=== PATIENT | male | born 2000 | race Caucasian/White ===

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

== ENCOUNTER → 2023-02-19 09:06 | Outpatient (CLI) | payer BC, SELFPAY ==
--- NOTE | 2023-02-19 09:06 | US_ITS ---
FINAL REPORT CLINICAL HISTORY: EPISODES OF CHEST PAIN COMPARISON: None FINDINGS: The gallbladder shows no wall thickening, distention or stone disease. There is an echogenic fixed focus along the posterior wall of the proximal gallbladder, which measures 5 mm in size, consistent with a small polyp. The common bile duct measures 2.1 mm and is unremarkable. No biliary ductal dilatation is appreciated. No fluid collections are seen. Limited portions of the right liver are unremarkable. Limited portions of the right kidney are unremarkable. IMPRESSION: 1. No evidence of cholelithiasis, however there is a fixed focus along the posterior wall of the proximal gallbladder, 5 mm in size, consistent with a small polyp. 2. No evidence of biliary obstruction Reviewed, Interpreted and Dictated by Karl Garcias MD Transcribed by Jayla Snyder Authenticated and [facility]
== END ==
PROVIDERS: PCP Nurse Practitioner Family; Visit Provider Family Medicine
DX: R10.811 Right upper quadrant abdominal tenderness (principal); R07.9 Chest pain, unspecified
CPT/HCPCS: 76705

== ENCOUNTER 2024-01-08 17:12 | Outpatient (CLI) | payer BC, SELFPAY ==
--- NOTE | 2024-01-08 17:22 | XR_ITS ---
PROCEDURE INFORMATION: Exam: XR Right Finger(s) Exam date and time: 01/08/2024 5:12 PM Age: 23 years old Clinical indication: Swelling; Fingers; Right; Additional info: R/O osteomyelitis distal index finger, cut distal index finger TECHNIQUE: Imaging protocol: Radiologic exam of the right fingers. Views: Minimum 2 views. COMPARISON: CR XR HAND RT MIN 3V 02/18/2019 9:03 PM FINDINGS: Bones/joints: No evidence for bone destruction to indicate osteomyelitis. Soft tissues: No evidence for periostitis to indicate osteomyelitis. IMPRESSION: 1. No evidence for bone destruction to indicate osteomyelitis. 2. No evidence for periostitis to indicate osteomyelitis. 3. If osteomyelitis is suspected MRI may be helpful.
== END 2024-01-08 23:59 | disposition home or self-care (01) ==
LOC: RAD 17:15
PROVIDERS: PCP Family Medicine; Visit Provider Family Medicine
DX: M79.89 Other specified soft tissue disorders (principal); L08.9 Local infection of the skin and subcutaneous tissue, unspecified
CPT/HCPCS: 73140

== ENCOUNTER 2024-09-04 13:00 | Outpatient (CLI) | payer BC, SELFPAY ==
--- OUTSIDE RECORDS SUMMARY | 2024-09-04 22:31 | XMS_ITS | Clinical Summary ---
Author Organization Healthcare Address [address] [place] [address] Care Team Providers Care Floral Decorator Name Role Phone Celine Mckeon Primary Care Provider Family History Medical History Relation Name Comments Hypercholesterolemia Father Psoriasis Father Relation Name Status Comments Father Social History Tobacco Use Types Packs/Day Years Used Date Smoking Tobacco: Passive Smo ke Exposure - Never Smoker Sex and Gender Information Value Date Recorded Sex Assigned at Not on file Legal Sex Male 8:54 PM EDT Gender Identity Not on file Sexual Orientation Not on file Last Filed Vital Signs Vital Sign Reading Time Taken Comments Blood Pressure - - Pulse - - Temperature - - Respiratory Rate - - Oxygen Saturation - - Inhaled Oxygen Concentration - - Weight 58.9 kg (129 lb 13.6 oz) 05/19/2015 8:54 AM EST Height 157.5 cm (5' 2.01 ) 05/19/2015 8:54 AM ES T Body Mass Index 23.74 05/19/2015 8:54 AM EST Plan of Treatment Not on file Care Teams Floral Decorator Relationship Specialty Start Date End Date Celine Mckeon PA [address] [place] [address] PCP - General 08/05/20
== END 2024-09-04 23:59 | disposition home or self-care (01) ==
LOC: LAB.DROPOF 22:28
PROVIDERS: PCP Nurse Practitioner Family; Visit Provider Nurse Practitioner Family
DX: J02.9 Acute pharyngitis, unspecified (principal)
CPT/HCPCS: 87070; 87077

== ENCOUNTER → 2025-01-25 20:39 | Outpatient (CLI) | payer BC, SELFPAY ==
--- OUTSIDE RECORDS SUMMARY | 2025-01-25 20:42 | XMS_ITS | Clinical Summary ---
Author Organization Healthcare Address [address] [place] [address] Care Team Providers Care Catering And Events Manager Name Role Phone Celine Mckeon Primary Care [...] of Treatment Not on file Care Teams Catering And Events Manager Relationship Specialty Start Date End Date Celine Mckeon PA [address] [place] [address] PCP - General 08/05/20
--- OUTSIDE RECORDS SUMMARY | 2025-01-25 20:42 | XMS_ITS | Data Portability ---
Author Organization [facility] ADMIN Address [address] [place] [phone] Assessment No assessment recorded. Plan of Treatment Reminders Order Date Submit Date Provider Last Modified By Organization Details Last Modified Time Details Appointments None record ed. Lab None record ed. Referral None record ed. Procedures None record ed. Surgeries None record ed. Imaging None record ed. Medication Orders None record ed. Patient TargetsNo targets recorded. Patient InstructionsNo instructions recorded. Reason for Referral None Reported. Problems Name Problem SNOMED Code Status Onset Date Resolution Date Notes Provider Name and Address Organization Details Recorded Time Abnormal auditory perception 28423723 Active 022 MATIAS APONTETZ, AUD [address] [facility], [place], [address] , [facility] & [place] 14:15:55 Problem Notes None recorded. Medical Equipment None Reported. Allergies No known drug allergies Medications Name Sig Start Date Stop Date Status Note LastModified by Organization Details LastModified Time ofloxacin 0.3 % ear drops PLACE 10 DROPS INTO THE AFFECTED EAR(S) ONCE A DAY FOR 7 DAYS active Not Available Not Available N ot Available amoxicillin 875 mg-potassium clavulanate 125 mg tablet TAKE 1 TABLET 2 TIMES EACH DAY FOR 7 DAYS active Not Available Not Available No t Available Vitals None Recorded Social History None recorded. Functional Status None recorded. Mental Status None recorded. Family History Relationship Description Onset Age of this Age Resolved Age Notes LastModified by Organization Details LastModified Time Father Allergy pt. added direct ly (01/02) API-13 Not available 01/02/2022 10:39:54 Medical History No medical history recorded. Past Encounters Encounter ID Performer Location Encounter Start Date Encounter Closed Date Diagnosis/Indication Diagnosis SNOMED-CT Code Diagnosis ICD10 Code Diagnosis IMO Codes Diagnosis Note [id number] OMAR MILTON [facility] [id number] [facility] [place] [address] 01/02/2022 13:49:38 01/02/2022 14:16:47 Abnormal auditory perception 01456002 H93.299 [id number] Marisa Lyle MD [facility] [place] [id number] [facility] [place] [address] 01/02/2022 13:50:02 01/02/2022 14:19:41 Abnormal auditory perception 81761390 H93.299 Audiogram and exam today were WNL. Allergic rhinitis 333914 04 J30.9 Advised the use of an antihistim ine and nasal steroid during his peak periods. Health Concerns Section Related Observation LastModified by Organization Detai ls LastModified Time None Recorded Concern Status LastModified by Organization Details LastModified Time None Recorded Advance Directives Directive None Recorded Payers Insurance Date Sequence Insurance Name Policy Number Policy Perez Covered Member ID Perez Member ID Guarantor Name 10/12/2023 1 [employer] [id number] [place] Valladares [id number] [place] Notes Date Note Type Note Provider Name and Address Organization Details Recorded Time 01/02/2022 text/html DizzinessReporte d by Patient Hearing Loss - AdultReported by PatientROS as noted in the HPI Mr. Valladares was seen today for an audiologic evaluation due to ongoing symptoms of L sided aural fullness/pressure, hearing loss, and ear pain. He reports that his symptoms have improved significantly following treatment by his PCP. Mr. Valladares denies drainage, excessive noise exposure, and family hx of hearing loss. Otoscopic inspection was unremarkable bilaterally. OMAR MILTON [id number] [facility], [place], [address], [facility] [place] - [place] & [place] 01/02/2022 14:16:30 01/02/2022 text/html Patient is a 21 yo male who is otherwise very healthy without a medical history who had a very bad upper respiratory infection when his family was putting up hay on [place]. He reports he saw a provider in the [place] who put him on Amoxicillin and he has improved and feel that he is almost back to baseline. No history of ear surgery. Does feel that he had allergy symptoms this spring and summer more so than ususal. Marisa Lyle MD [address], [place], [address], [facility] - [place] & [place] 01/02/2022 14:26:35
--- OUTSIDE RECORDS SUMMARY | 2025-01-25 20:42 | XMS_ITS | Clinical Summary ---
[facility] Address [address] [place] [address] Care Team Providers Care Housing Development Specialist Name Role Phone Provider, No Known Primary Care Provider Unavail able Allergies Active Allergy Reactions Criticality Noted Date Comments Levetiracetam Irritability 12/15/2021 Oxcarbazepine Dizziness 12/15/2021 Medications omeprazole (priLOSEC) 20 MG capsule TAKE 1 CAPSULE 2 TIMES EACH DAY 02/13/2023 Active Active Problems Problem Noted Date Diagnosed Date Precordial chest pain 02/26/2023 Assessment & Plan (02/26/2023 4:20 PM EST): Intermittent episodes of chest pain. -We will proceed with cardiac workup due to symptoms and strong family history of premature CAD. Abnormal EKG 02/26/2023 Assessment & Plan (02/26/2023 4:19 PM EST): EKG today shows sinus tachycardia with a heart rate of 103 bpm and an incomplete right bundle branch block. Family history of premature CAD 02/26/2023 Assessment & Plan (02/26/2023 4:22 PM EST): He has no known heart disease, however, his sister at age 19 due to a massive heart attack. His mother reports that according to her autopsy report, she had a significant left main stenosis. I reviewed the autopsy report provided by patient's mother, moderate to severe atherosclerotic narrowing of the coronary arteries were noted. Patient's mother reports that his sister was experiencing similar pain prior to her . She was experiencing upper abdominal pain and chest pain as well. Patient's father has a history of severely elevated cholesterol and his grandfather has had multiple stents and Mis -Stress Echo and Echo for further evaluation -Follow up in 1 month. Family History Medical History Relation Name Comments Hyperlipidemia Father Hypertension Father Coronary artery disease Sister Relation Name Status Comments Father Alive Mother Alive Sister Social History Tobacco Use Types Packs/Day Years Used Date Smoking Tobacco: Never Passive Smoke Exposure: Never Smokeless Tobacco: Never Tobacco Cessation:Counseling Given: No Alcohol Use Standard Drinks/Week Comments Not Currently 0 (1 standard drink = 0.6 oz pur e alcohol) Abuse Screen Answer Date Recorded Unsafe at Home or Work/School Not on file Feels Threatened by Someone? Not on file 02/2023 Does Anyone Keep You from Co ntacting Others or Doint Things Outside the Home? Not on file 01/03/2023 Physical Sign of Abuse Present Not on file 1 Housing Stability Answer Date Recorded Current Living Arrangements Not on file 12/23 Potentially Unsafe Housing Conditions Not on carolann e 01/03/2023 Family and Community Support Answer Cezar e Recorded Help with Day-to-Day Activities Not on file 01/03/2023 Lonely or Isolated Not on file 01/03/2023 Employment Answer Date Recorded Do you want help finding or keeping work or a rubén b? Not on file 01/03/2023 Disabilities Answer Date Recorded Concentrating, Remembering, or Making Decisions Difficulty Not on file 01/03/2023 Doing Errands Independently Difficulty Not on fi le 01/03/2023 Education Answer Date Recorded Help with school or training? Not on file Preferred Language Not on file 01/03/2023 Sex and Gender Information Value Date Recorded Sex Assigned at Not on file Legal Sex Male 11:36 AM EST Gender Identity Not on file Sexual Orientation Not on file Last Filed Vital Signs Vital Sign Reading Time Taken Comments Blood Pressure 138/63 03/27/2023 2:52 PM EST Pulse 87 02/26/2023 3:08 PM EST Temperature 37.4 C (99.3 F) 04/26/2019 12:00 PM EST Respiratory Rate 15 04/26/2019 12:00 PM EST Oxygen Saturation 99% 02/26/2023 3:08 PM EST Inhaled Oxygen Concentration - - Weight 81.6 kg (180 lb) 03/27/2023 2:52 PM EST Height 162.6 cm (5' 4 ) 03/27/2023 2:52 PM EST Body Mass Index 30.9 03/27/2023 2:52 PM EST Plan of Treatment Health Maintenance Due Date Last Done Comments MENINGOCOCCAL B VACCINE (1 of 2 - Standard) 2018 ANNUAL PHYSICAL 04/26/2019 HEPATITIS C SCREENING 04/26/2019 TDAP/TD VACCINES (2 - Td or Tdap) 08/27/2024 08/27/2014 INFLUENZA VACCINE 10/23/2024 Pneumococcal Vaccine 0-49 Completed 2003, 05/20/2003, 02/01/2003, Additional history exists MENINGOCOCCAL VACCINE Aged Out 08/27/2014 No trina hiram eligible based on patient's age to complete this topic Insurance [employer] Care Teams Housing Development Specialist Relationship Specialty Start Date End Date Provider, [place] [address] PCP - General 04/26/19
== END ==
PROVIDERS: PCP Family Medicine; Visit Provider Specialist
DX: G47.30 Sleep apnea, unspecified (principal)